=== PATIENT | female | born 1950 ===

== ENCOUNTER 2019-08-07 16:42 | Emergency (ER) | payer OTHER, MEDICARE ==
--- NOTE | 2019-08-07 17:21 | UC ---
Head Injury HPI - HPI Summary HPI Summary: 69 yo well woman, [place] about one hour prior to arrive, when she slipped and fell while stepping over the track, hitting her head against the loose gravel, without loss of consciousness. She twisted her back in the fall, and currently most of her pain is in the lumbar area, causing her to feel a bit off. No underlying hx of degenerative disease or chronic back pain. She has a scalp laceration which has bled significantly No aspirin use or use of herbal supplements. Tetanus is current. - History Of Current Complaint Chief Complaint: UCHeadInjury Stated Complaint: head laceration Time Seen by Provider: 08/07/19 16:55 Hx Obtained From: Patient Onset/Duration: Sudden Onset, Lasting Hours Severity Currently: Mild Severity Initially: Moderate Pain Intensity: 6 Character: Throbbing Aggravating Factor(s): Other - touch Alleviating Factor(s): Nothing - no meds taken Associated Signs And Symptoms: Positive: Negative. Negative: LOC (Time In Secs. /Mins/Hrs) - Risk Factors SDH Risk Factor: Negative - Allergies/Home Medications Allergies/Adverse Reactions: Allergies Allergy/AdvReac Type Severity Reaction Status Date / Time No Known Allergies Allergy Verified 08/07/19 16:54 Home Medications: Home Medications NK [No Home Medications Reported] 08/07/19 [History Confirmed 08/07/19] PMH/Surg Hx/FS Hx/Imm Hx Previously Healthy: Yes - Surgical History Surgical History: Yes Surgery Procedure, Year, and Place: cyst removal ovarian - Family History Known Family History: Positive: Hypertension - mother - Social History Occupation: Retired Lives: With Family Alcohol Use: Occasionally Substance Use Type: None Smoking Status (MU): Never Smoked Tobacco - Immunization History Hx Tetanus, Diphtheria Vaccination: Yes Vaccination Up to Date: Yes Review of Systems All Other Systems Reviewed And Are Negative: Yes Constitutional: Positive: Negative, Other - returned from [place] over 2 weeks ago and has no respiratory symptoms.. Negative: Fever, Fatigue Eyes: Positive: Negative. Negative: Blurred Vision, Diplopia, Drainage ENT: Positive: Negative Respiratory: Positive: Negative Cardiovascular: Positive: Negative Gastrointestinal: Positive: Negative Genitourinary: Positive: Negative Motor: Positive: Negative Neurovascular: Positive: Negative Musculoskeletal: Positive: Arthralgia, Myalgia Neurological/Mental Status: Negative: Headache Psychological: Positive: Negative Physical Exam Triage Information Reviewed: Yes Appearance: Well-Appearing, Pain Distress - mild to moderate, with pain originating from the low back Vital Signs Reviewed: Yes Eye Exam: Other - ALISSA, eom normal Eyes: Positive: Conjunctiva Clear Neck: Positive: Supple, Nontender, No Lymphadenopathy Respiratory: Positive: Lungs clear, Normal breath sounds Cardiovascular: Positive: RRR, No Murmur Abdomen Description: Positive: Nontender, No Organomegaly Musculoskeletal Exam: Other - mildly antalgic gait Neurological: Positive: Alert, Muscle Tone Normal Skin Exam: Other - laceration left occipital area, 5 mm Skin: Positive: Other - hematoma underlying laceration approx 4 cm, second hematoma to the right, approx 4 cm, without associated laceration. Procedures - Laceration/Wound Repair 1 Location: head - left occipital area Description: Irregular - 5 mm deep scalp laceration repaired with one staple Betadine Prep?: No Laceration/Wound Explored: clean Closure: Luisana #__ - 1 Head Injury Course/Dx - Course Course Of Treatment: Staple inserted in laceration. Acetaminophen/stretches for back injury - Differential Dx/Diagnosis Differential Diagnosis/HQI/PQRI: Laceration Provider Diagnosis: Laceration of occipital region of scalp, Low back strain Discharge ED - Sign-Out/Discharge Documenting (check all that apply): Patient Departure All imaging exams completed and their final reports reviewed: No Studies - Discharge Plan Condition: Stable Disposition: HOME Patient Education Materials: Staple Care (ED), Low Back Strain (ED), Lower Back Exercises (ED) Referrals: Misha Erickson DO [Primary Care Provider] - Additional Instructions: Please have the staple removed in 10 days. You can register on line for this. You can wash your hair and shower tomorrow. Use acetaminophen 650mg up to 4 times per day. Alternate heat and cold compresses on your low back, and stretch gently several times per day Follow up if you have increasing pain or decreasing mobility. - Billing Disposition and Condition Condition: STABLE Disposition: Home
== END 2019-08-07 18:47 | disposition home or self-care (01) ==
LOC: UCEAST 16:42
DX: S01.01XA Laceration without foreign body of scalp, initial encounter (principal); S39.012A Strain of muscle, fascia and tendon of lower back, initial encounter; W01.198A Fall on same level from slipping, tripping and stumbling with subsequent striking against other object, initial encounter; Y93.01 Activity, walking, marching and hiking; Y92.89 Other specified places as the place of occurrence of the external cause
CPT/HCPCS: 12001; 99211; G0463

== ENCOUNTER 2019-08-16 10:35 | Emergency (ER) | payer MEDICARE, OTHER ==
--- NOTE | 2019-08-16 11:05 | UC ---
General HPI - HPI Summary HPI Summary: 69-year-old woman here for staple removal. Patient tripped and fell and struck the back of her head on August 07, 2019. A single staple was placed in her scalp on that date. Patient has been well. No concern of infection. - History of Current Complaint Chief Complaint: UCLaceration Stated Complaint: SUTURE REMOVAL Time Seen by Provider: 08/16/19 11:02 Pain Intensity: 0 - Allergy/Home Medications Allergies/Adverse Reactions: Allergies Allergy/AdvReac Type Severity Reaction Status Date / Time No Known Allergies Allergy Verified 08/16/19 11:00 Home Medications: Home Medications NK [No Home Medications Reported] 08/07/19 [History Confirmed 08/16/19] PMH/Surg Hx/FS Hx/Imm Hx Previously Healthy: Yes - Surgical History Surgical History: Yes Surgery Procedure, Year, and Place: cyst removal ovarian - Family History Known Family History: Positive: Hypertension - mother - Social History Alcohol Use: Occasionally Substance Use Type: None Smoking Status (MU): Never Smoked Tobacco - Immunization History Hx Tetanus, Diphtheria Vaccination: Yes Vaccination Up to Date: Yes Review of Systems All Other Systems Reviewed And Are Negative: Yes Constitutional: Positive: Negative Skin: Positive: Other - see hpi Eyes: Positive: Negative ENT: Positive: Negative Respiratory: Positive: Negative Cardiovascular: Positive: Negative Motor: Positive: Negative Neurovascular: Positive: Negative Musculoskeletal: Positive: Negative Neurological/Mental Status: Positive: Negative Psychological: Positive: Negative Is Patient Immunocompromised?: No Physical Exam Triage Information Reviewed: Yes Appearance: Well-Appearing, No Pain Distress, Well-Nourished Vital Signs Reviewed: Yes Eye Exam: Normal Eyes: Positive: Conjunctiva Clear Neck: Positive: Supple Respiratory: Positive: No respiratory distress Musculoskeletal: Positive: Strength Intact, ROM Intact Neurological: Positive: Alert, Muscle Tone Normal Psychological: Positive: Age Appropriate Behavior Skin: Positive: Other - On the occipital scalp there is a single staple which I removed. The underlying wound is healed without any signs of infection. Course/Dx - Diagnoses Provider Diagnosis: Removal of staple Discharge ED - Sign-Out/Discharge Documenting (check all that apply): Patient Departure All imaging exams completed and their final reports reviewed: No Studies - Discharge Plan Condition: Stable Disposition: HOME Patient Education Materials: Stitches Removal (ED) Referrals: Dre,Misha C, DO [Primary Care Provider] - Additional Instructions: FOLLOW UP WITH YOUR DOCTOR IF NOT COMPLETELY IMPROVED. GET REEVALUATED IF NOT IMPROVED OR WORSE OR ANY QUESTIONS OR CONCERNS. - Billing Disposition and Condition Condition: STABLE Disposition: Home
== END 2019-08-16 11:10 | disposition home or self-care (01) ==
LOC: UCEAST 10:35
DX: S01.01XD Laceration without foreign body of scalp, subsequent encounter (principal); W01.0XXD Fall on same level from slipping, tripping and stumbling without subsequent striking against object, subsequent encounter